=== PATIENT | female | born 1970 | race Two or more races ===

== ENCOUNTER 2018-09-18 17:26 | Inpatient (IN) | payer MEDICAID, OTHER ==
[~2018-09-18] VITALS: Ht 157.5 cm; Wt 50.9 kg
[2018-09-18] MEDS ORDERED: SODIUM CHLORIDE 0.9% 500 ML IV ONE (17:53)
[2018-09-18 19:07] LABS: Basophils # (auto) 0 uL; Basophils % (auto) 0.3 % (0.0-2.0); Eosinophils # (auto) 0 uL; Hematocrit 24.7 % (36.0-46.0); Hemoglobin 7.7 g/dL (12.2-16.2); Lymphocytes # (auto) 0.6 uL; Lymphocytes % (auto) 7.5 % (10.0-50.0); Mean Corpuscular Hemoglobin 23.8 pg (28.0-32.0); Mean Corpuscular Hgb Conc. 31.4 g/dL (32.0-36.0); Monocytes # (auto) 0.3 uL; Monocytes % (auto) 3.3 % (0.0-12.0); Neutrophils # (auto) 7.1 uL; Neutrophils % (auto) 88.9 % (37.0-80.0); Platelet Count (auto) 253 10^3/uL (140-450); Red Blood Cells 3.25 10^6/uL (4.0-5.20); Red Cell Distribution Width 18.1 % (11.8-14.3)
[2018-09-18 19:26] LABS: Albumin 2.8 g/dL (3.4-5.0); Magnesium 1.8 mg/dL (1.6-2.6); Potassium 3.7 mmol/L (3.5-5.1)
[2018-09-18 19:31] LABS: BUN/Creatinine Ratio 25.5; Bilirubin, Total 0.3 mg/dL (0.2-1.0); Total Protein 6.3 g/dL (6.4-8.2)
[2018-09-19] VITALS (10 sets, daily range): BP systolic 91–115; BP diastolic 59–74
[2018-09-19] MEDS ORDERED: ONDANSETRON HCL 4 MG/2 ML VIAL IV ONE (01:15)
[2018-09-19] MEDS ORDERED: MORPHINE SULFATE 4 MG/ML SYR/VIAL IV ONE (01:15)
[2018-09-19] MEDS ORDERED: ONDANSETRON HCL 4 MG/2 ML VIAL IV PRN (01:45)
[2018-09-19] MEDS ORDERED: HYDROcodone-ACET 5/325MG TAB PO PRN (01:45)
[2018-09-19] MEDS ORDERED: ACETAMINOPHEN 500 MG TAB PO PRN (01:45)
[2018-09-19] MEDS: SODIUM CHLORIDE 0.9% 1,000 ML IV SCH ×3 (01:52→21:45)
[2018-09-19 07:43] LABS: Basophils # (auto) 0.1 uL; Lymphocytes # (auto) 1.8 uL; Monocytes # (auto) 0.4 uL; Nucleated Red Blood Cells % 0.1 %; Red Blood Cells 2.97 10^6/uL (4.0-5.20)
[2018-09-19 07:44] LABS: Eosinophils # (auto) 0.1 uL; Hematocrit 22.5 % (36.0-46.0); Hemoglobin 7.1 g/dL (12.2-16.2); Mean Corpuscular Hemoglobin 23.9 pg (28.0-32.0); Mean Corpuscular Hgb Conc. 31.5 g/dL (32.0-36.0); Mean Corpuscular Volume 75.9 fL (80.0-100.0); Monocytes % (auto) 7.3 % (0.0-12.0); Neutrophils # (auto) 3.1 uL; Neutrophils % (auto) 57.7 % (37.0-80.0); Platelet Count (auto) 218 10^3/uL (140-450); Red Cell Distribution Width 17.5 % (11.8-14.3); White Blood Cell 5.4 10^3/uL (4.4-10.8)
[2018-09-19 08:01] LABS: Calcium 7.4 mg/dL (8.5-10.1); Potassium 3.4 mmol/L (3.5-5.1)
[2018-09-19] MEDS ORDERED: cefTRIAXone 1GM/50ML D5W 50 ML IV ONE (11:15)
[2018-09-19 11:31] LABS: Urine Bacteria MANY /hpf (None Seen); Urine Blood Negative /uL (Negative); Urine Mucus MODERATE (None Seen); Urine Specific Gravity 1.025 (1.001-1.035); Urine WBC 63 /hpf (0 - 5)
[2018-09-19 15:51] LABS: INR 1.09 (0.9-1.15); Prothrombin Time 11.6 sec (9.27-12.13)
[2018-09-20] MEDS: SODIUM CHLORIDE 0.9% 1,000 ML IV SCH ×2 (01:52→22:35)
[2018-09-20 04:50] VITALS: BP 109/67
[2018-09-20 06:14] LABS: Basophils # (auto) 0 uL; Eosinophils # (auto) 0 uL; Hematocrit 27.7 % (36.0-46.0); Monocytes # (auto) 0.4 uL; Red Blood Cells 3.54 10^6/uL (4.0-5.20); Red Cell Distribution Width 18.5 % (11.8-14.3); White Blood Cell 5.6 10^3/uL (4.4-10.8)
[2018-09-20 06:17] LABS: Basophils % (auto) 0.6 % (0.0-2.0); Eosinophils % (auto) 0.7 % (0.0-7.0); Lymphocytes % (auto) 18.1 % (10.0-50.0); Mean Corpuscular Hgb Conc. 32.6 g/dL (32.0-36.0); Mean Corpuscular Volume 78.3 fL (80.0-100.0); Monocytes % (auto) 7.3 % (0.0-12.0); Neutrophils # (auto) 4.1 uL; Neutrophils % (auto) 73.3 % (37.0-80.0); Nucleated Red Blood Cells % 0.1 %
[2018-09-20 06:19] LABS: Mean Corpuscular Hemoglobin 25.6 pg (28.0-32.0); Platelet Count (auto) 191 10^3/uL (140-450)
[2018-09-20 06:30] LABS: Calcium 7.5 mg/dL (8.5-10.1); Potassium 3.4 mmol/L (3.5-5.1)
[2018-09-20 06:33] LABS: Albumin 2.6 g/dL (3.4-5.0); BUN/Creatinine Ratio 14.3
[2018-09-20 06:36] LABS: Bilirubin, Total 0.4 mg/dL (0.2-1.0); Total Protein 6.1 g/dL (6.4-8.2)
[2018-09-20 09:00] VITALS: BP 110/70
[2018-09-20] MEDS: cefTRIAXone 1GM/50ML D5W 50 ML IV SCH (09:11)
[2018-09-20] MEDS ORDERED: ADENOSINE 38 MG in GIVE UN-DILUTED 0 ML IV STA (09:48)
[2018-09-20 09:53] VITALS: BP 107/65
[2018-09-20] MEDS ORDERED: POTASSIUM CHL 20MEQ/100ML 100 ML IV ONE (12:15)
[2018-09-20 13:00] VITALS: BP 114/70
[2018-09-20 17:00] VITALS: BP 109/72
[2018-09-20 21:58] VITALS: BP 115/72
[2018-09-21 04:58] VITALS: BP 107/55
[2018-09-21 05:16] LABS: Basophils # (auto) 0 uL; Eosinophils # (auto) 0.1 uL; Lymphocytes # (auto) 1.1 uL; Monocytes # (auto) 0.5 uL; White Blood Cell 4.5 10^3/uL (4.4-10.8)
[2018-09-21 05:20] LABS: Eosinophils % (auto) 1.9 % (0.0-7.0); Hematocrit 26.3 % (36.0-46.0); Lymphocytes % (auto) 25.4 % (10.0-50.0); Mean Corpuscular Hemoglobin 26.5 pg (28.0-32.0); Mean Corpuscular Hgb Conc. 34.1 g/dL (32.0-36.0); Mean Corpuscular Volume 77.5 fL (80.0-100.0); Monocytes % (auto) 11.2 % (0.0-12.0); Neutrophils # (auto) 2.7 uL; Neutrophils % (auto) 60.5 % (37.0-80.0); Platelet Count (auto) 180 10^3/uL (140-450); Red Blood Cells 3.39 10^6/uL (4.0-5.20); Red Cell Distribution Width 18.5 % (11.8-14.3)
[2018-09-21 05:42] LABS: Albumin 2.4 g/dL (3.4-5.0); Calcium 7.4 mg/dL (8.5-10.1)
[2018-09-21 05:46] LABS: BUN/Creatinine Ratio 8.6; Bilirubin, Total 0.4 mg/dL (0.2-1.0); Total Protein 5.6 g/dL (6.4-8.2)
[2018-09-21 05:55] LABS: Potassium 2.9 mmol/L (3.5-5.1)
[2018-09-21] MEDS: SODIUM CHLORIDE 0.9% 1,000 ML IV SCH (06:28)
[2018-09-21] MEDS ORDERED: POTASSIUM CHL 20MEQ/100ML 100 ML IV ONE ×2 (08:45→10:45)
[2018-09-21 09:00] VITALS: BP 104/69
[2018-09-21] MEDS: cefTRIAXone 1GM/50ML D5W 50 ML IV SCH (09:00)
[2018-09-21] MEDS ORDERED: PANTOPRAZOLE 40 MG TAB PO ONE (10:30)
[2018-09-21] MEDS: SOD CHL 0.9%/ KCL 20MEQ 1,000 ML IV SCH ×2 (10:30→23:50)
[2018-09-21] MEDS ORDERED: GOLYTELY 4L KIT PO ONE (12:45)
[2018-09-21 13:00] VITALS: BP 107/69
[2018-09-21 16:56] VITALS: BP 115/75
[2018-09-21 21:37] VITALS: BP 116/75
[2018-09-22 04:44] VITALS: BP 102/66
[2018-09-22] MEDS ORDERED: GOLYTELY 4L KIT PO ONE (06:00)
[2018-09-22 06:07] LABS: Hemoglobin 8.9 g/dL (12.2-16.2)
[2018-09-22 06:15] LABS: Hematocrit 27.5 % (36.0-46.0)
[2018-09-22 06:43] LABS: Potassium 3.1 mmol/L (3.5-5.1)
[2018-09-22 06:51] LABS: BUN/Creatinine Ratio 6.3; Calcium 7.9 mg/dL (8.5-10.1)
[2018-09-22 08:00] VITALS: BP 102/56
[2018-09-22] MEDS ORDERED: SODIUM CHLORIDE LOCK 10 ML ONE (08:25)
[2018-09-22] MEDS ORDERED: diphenhdrAMINE 50mg/ml (500mg/10ml VIAL) ONE (08:25)
[2018-09-22] MEDS ORDERED: LIDOCAINE VISCOUS 2% 15ML UD ONE (08:25)
[2018-09-22 08:56] VITALS: BP 102/56
[2018-09-22] MEDS: cefTRIAXone 1GM/50ML D5W 50 ML IV SCH (09:27)
[2018-09-22] MEDS ORDERED: PANTOPRAZOLE 40 MG TAB PO SCH (10:00)
[2018-09-22] MEDS: MIDAZOLAM HCL 5 MG/ML-1ML VIAL ONE ×2 (11:10→11:23)
[2018-09-22] MEDS: fentaNYL CITRATE 100 MCG/2 ML VL ONE ×2 (11:10→11:23)
[2018-09-22] MEDS: SOD CHL 0.9%/ KCL 20MEQ 1,000 ML IV SCH (13:03)
[2018-09-22] MEDS ORDERED: FER325T PO (13:06)
[2018-09-22] MEDS ORDERED: POTASSIUM CHL 20 Meq TABLET PO ONE (13:30)
[2018-09-22 14:40] VITALS: BP 102/56
== END 2018-09-22 16:25 | disposition home or self-care (01) | DRG 663 ==
LOC: EDBD 17:26 → ER 17:26 → TELE 17:27 → TELE-WESTW 09-19 03:10
PROVIDERS: ADMIT Nurse Practitioner Family; ATTEND Internal Medicine
PROC: 30233N1 Transfusion of Nonautologous Red Blood Cells into Peripheral Vein, Percutaneous Approach (ICD-10-PCS; 2018-09-19)
PROC: 0DJ08ZZ Inspection of Upper Intestinal Tract, Via Natural or Artificial Opening Endoscopic (ICD-10-PCS; principal; 2018-09-22 11:05)
PROC: 0DJD8ZZ Inspection of Lower Intestinal Tract, Via Natural or Artificial Opening Endoscopic (ICD-10-PCS; 2018-09-22 11:05)
DX: D50.9 Iron deficiency anemia, unspecified (principal); K80.00 Calculus of gallbladder with acute cholecystitis without obstruction; E44.1 Mild protein-calorie malnutrition; E83.51 Hypocalcemia; E87.6 Hypokalemia; F41.9 Anxiety disorder, unspecified; K44.9 Diaphragmatic hernia without obstruction or gangrene; K59.00 Constipation, unspecified; K64.8 Other hemorrhoids; Z68.20 Body mass index [BMI] 20.0-20.9, adult
CPT/HCPCS: 36415; 71045; 74176; 74181; 76705; 78226; 78452; 80048; 80053; 81001; 83735; 84484; 84702; 85014; 85018; 85025; 85610; 86850; 86900; 86901; 86920; 87086; 93005; 93017; 93306; 94761; 96361; 96374; 96375; A6257; G0378; J0153; J0696; J1200; J2250; J2405; J3480

== ENCOUNTER 2019-05-24 10:07 | Emergency (ER) | payer MEDICAID ==
[~2019-05-24] VITALS: Ht 160 cm; Wt 52.2 kg
[~2019-05-24 10:07] MED LIST: FER325T PO
[2019-05-24] MEDS ORDERED: SODIUM CHLORIDE 0.9% 1,000 ML IV ONE ×3 (10:45→12:18)
[2019-05-24] MEDS ORDERED: ONDANSETRON HCL 4 MG/2 ML VIAL IV ONE (10:45)
[2019-05-24] MEDS ORDERED: MORPHINE SULFATE 4 MG/ML SYR/VIAL IV ONE (10:45)
[2019-05-24 11:01] LABS: Basophils # (auto) 0.1 uL; Eosinophils # (auto) 0.1 uL; Hemoglobin 9.9 g/dL (12.2-16.2); Lymphocytes # (auto) 1.3 uL; Mean Corpuscular Volume 82.9 fL (80.0-100.0); Monocytes # (auto) 0.5 uL; Neutrophils # (auto) 2.4 uL; Nucleated Red Blood Cells % 0.1 %
[2019-05-24 11:03] LABS: Basophils % (auto) 1.2 % (0.0-2.0); Eosinophils % (auto) 1.8 % (0.0-7.0); Hematocrit 30.8 % (36.0-46.0); Lymphocytes % (auto) 30.4 % (10.0-50.0); Mean Corpuscular Hemoglobin 26.7 pg (28.0-32.0); Mean Corpuscular Hgb Conc. 32.2 g/dL (32.0-36.0); Monocytes % (auto) 10.5 % (0.0-12.0); Neutrophils % (auto) 56.1 % (37.0-80.0); Platelet Count (auto) 214 10^3/uL (140-450); Red Blood Cells 3.72 10^6/uL (4.0-5.20); Red Cell Distribution Width 15.7 % (11.8-14.3); White Blood Cell 4.3 10^3/uL (4.4-10.8)
[2019-05-24 11:08] LABS: Potassium 3.4 mmol/L (3.5-5.1)
[2019-05-24 11:16] LABS: Albumin 3.2 g/dL (3.4-5.0); BUN/Creatinine Ratio 20.4; Bilirubin, Total 0.3 mg/dL (0.2-1.0); Calcium 8.3 mg/dL (8.5-10.1); Total Protein 7.3 g/dL (6.4-8.2)
[2019-05-24 13:07] VITALS: BP 103/66
[2019-05-24] MEDS ORDERED: POTASSIUM EFFERVESENT TAB 25 MEQ PO ONE (13:30)
[2019-05-24 14:46] LABS: Urine Bacteria FEW /hpf (None Seen); Urine Blood Negative /uL (Negative); Urine Mucus FEW (None Seen); Urine Specific Gravity 1.012 (1.001-1.035); Urine WBC 2 /hpf (0 - 5)
== END 2019-05-24 15:03 | disposition home or self-care (01) ==
LOC: ER 10:11
DX: N39.0 Urinary tract infection, site not specified (principal); K59.00 Constipation, unspecified; R11.0 Nausea; Z79.899 Other long term (current) drug therapy; Z90.49 Acquired absence of other specified parts of digestive tract
CPT/HCPCS: 36415; 71045; 74176; 80053; 81001; 84702; 85025; 96374; 96375; 99284; J2270; J2405; J7030

== ENCOUNTER 2025-02-09 22:43 | Inpatient (IN) | payer MEDICAID, OTHER ==
[~2025-02-09] VITALS: Ht 157.5 cm; Wt 66.5 kg
[~2025-02-09 22:43] MED LIST changes: +DEX4T PO; +FURO20TA4 PO; +GABA-1250 PO; +MIRA25TA4 PO
--- NOTE | 2025-02-09 22:52 | ED.PDOC ---
HPI Comments 54-year-old female came to ER via EMS for palpitations. Patient as of 9:45 p.m. started having palpitations, dizziness, blurring of vision, diaphoresis and headaches. States she has been having episodes of palpitations before but usually resolves spontaneously after 1-2 minutes. Palpitations has persisted and progressed prompting check up. Denies any acute chest pains. Patients EKG on scene showed Afib in RVR. Patient never diagnosed of AFib Chief Complaint: Palpitations Time Seen by MD: 23:59 Reviewed Notes: Nurses Notes Allergies: Coded Allergies: No Known Drug Allergy (Verified Allergy, Unknown, 09/18/18) Home Meds Active Scripts Amiodarone HCl (Amiodarone HCl) 200 Mg Tab, 200 MG PO Q12HR for 60 Days, #120 TAB Prov:JESICA Moe NIMCO RESIDENT 02/12/25 Atorvastatin Calcium (ATORVASTATIN CALCIUM) 20 Mg Tab, 20 MG PO HS for 60 Days, #60 TAB Prov:NIMCO HARRISON RESIDENT 02/12/25 Gabapentin (Gabapentin) 300 Mg Cap, 600 MG PO BID for 60 Days, #60 CAP Prov:NIMCO HARRISON RESIDENT 02/12/25 Levothyroxine Sodium (Levothyroxine Sodium) 50 Mcg Tab, 50 MCG PO QAM@0600 for 60 Days, #60 TAB Prov:JESICA Moe NIMCO RESIDENT 02/12/25 Reported Medications Furosemide (Furosemide) 20 Mg Tab, 0.5 TAB PO DAILY for 30 Days, #15 02/10/25 Ciprofloxacin Hcl (Ciprofloxacin Hcl) 500 Mg Tab, 1 TAB PO BID 02/10/25 Metoclopramide HCl (Metoclopramide Hydrochlor) 10 Mg Tab, 1 TAB PO QID 02/10/25 Nitrofurantoin Monohydrate Mac (Macrobid) 100 Mg Cap, 100 MG PO Q12HR, CAP 02/10/25 Clotrimazole (Topical) (Clotrimazole Anti-Fungal) 1 % Cre, 1 TOP DAILY 02/10/25 Dexamethasone (Decadron) 4 Mg Tb, PO UD for 30 Days, #40 02/10/25 Esomeprazole Magnesium (Esomeprazole Magnesium Dr) 40 Mg Cap, 1 CAP PO DAILY 02/10/25 Mirtazapine (Remeron Soltab) 15 Mg Tab, 25 MG PO DAILY, TAB 02/10/25 Mirabegron (Mirabegron ER) 25 Mg Tab, 1 TAB PO DAILY for 30 Days, #30 02/10/25 Multiple Vitamins W/ Minerals (Theragran-M Premier 50 Pl) 50 Plus Tab, 50 PLUS PO DAILY, TAB 02/10/25 Ascorbic Acid (Vitamin C 500 mg) 1 Tab Tab, 1 TAB PO DAILY, TAB 02/10/25 Aspirin (Aspirin Low Dose) 81 Mg Tab, 1 TAB PO DAILY 02/10/25 Midodrine Hcl (Midodrine Hcl) 10 Mg Tab, 15 MG PO TID, TAB 02/10/25 Acetaminophen (Tylenol) 325 Mg Cap, 325 MG PO Q6HP PRN for PAIN SCALE 1 THRU 6, CAP 02/10/25 Gabapentin (Gabapentin) 300 Mg Cap, 2 CAP PO TID for 30 Days, #180 02/10/25 Loperamide HCl (Loperamide Hydrochloride) 2 Mg Cap, 2 PO BID 02/10/25 Information Source: Patient Mode of Arrival: EMS Review of Systems REVIEW OF SYSTEMS: No fever, no chills, or fatigue HEENT: No sore throat, no earache, no congestion, no neck pain. Cardiac: No chest pain. (+) palpitations. Lungs: No shortness of breath, no cough. GI: No nausea, no vomiting, no diarrhea, no constipation, no abdominal pain : No dysuria, frequency, or urgency. No hematuria. Musculoskeletal: No joint pain , no joint swelling, no extremity edema. Skin: No rash, no itching. Neuro: No headache, (+) dizziness, no weakness Vital Signs Vital Signs Date Time Temp Pulse Resp B/P (MAP) Pulse Ox O2 Delivery O2 Flow Rate FiO2 02/10/25 01:54 96/57 02/10/25 01:53 80 02/10/25 01:51 17 100 Nasal Cannula* 2 28 02/09/25 23:05 98.7 98.7 Physical Exam General: Awake, alert and oriented. No acute distress. Skin: Skin in warm, dry and intact. Appropriate color for ethnicity. Nailbeds pink with no cyanosis. HEENT: The head is normocephalic and atraumatic. Conjunctivae are clear without exudates or hemorrhage. Sclera is non-icteric. EOM are intact. No signs of nystagmus. Eyelids are normal in appearance without swelling or lesions. Oral mucosa is pink and moist Neck: The neck is supple with normal range of motion. No JVD. Cardiac: Heart rate and rhythm are normal. No murmurs, gallops, or rubs are auscultated. Respiratory: No signs of respiratory distress. Lung sounds are clear in all lobes bilaterally without rales, ronchi, or wheezes. Abdominal: Abdomen is soft, non-tender without distention. Bowel sounds are present and normoactive in all four quadrants. Extremities: Upper and lower extremities are atraumatic in appearance without deformity or edema. Neurological: The patient is awake, alert and oriented to person, place, and time with normal speech. Speech is clear. There is no facial asymmetry. Psychiatric: Appropriate mood and affect. Good judgement and insight. No visual or auditory hallucinations. 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 Was a procedure done?: No CP Differential Dx Differential Diagnosis: A-fib, Angina, Anxiety / Panic Attack, Electrolyte Disorder, Hyperventilation, Sinus Tachycardia Differential Diagnosis: Angina, Chest Wall Pain, Costochondritis, Esophageal reflux/spasm, Gastritis, Myocardial Infarction X-Ray, Labs, Meds, VS Vital Signs Date Time Temp Pulse Resp B/P (MAP) Pulse Ox O2 Delivery O2 Flow Rate FiO2 02/10/25 01:54 96/57 02/10/25 01:53 80 02/10/25 01:51 88 17 100 Nasal Cannula* 2 28 02/10/25 01:50 81 19 95/67 (76) 100 02/10/25 01:35 73 16 93/65 (74) 100 02/10/25 01:20 88 16 86/57 (67) 100 02/10/25 01:05 92 20 86/59 (68) 100 02/10/25 00:54 83/57 02/10/25 00:50 88 16 83/58 (66) 100 02/10/25 00:35 88 18 86/58 (67) 100 02/10/25 00:20 135 19 75/45 (55) 99 02/10/25 00:05 160 19 84/60 (68) 100 02/09/25 23:50 140 16 81/57 (65) 100 02/09/25 23:48 149 02/09/25 23:35 119 19 65/45 (52) 100 02/09/25 23:20 171 14 79/50 (60) 100 02/09/25 23:05 98.7 169 22 82/54 (63) 100 98.7 02/09/25 22:52 161 02/09/25 22:46 98.2 170 20 95/60 (72) 98 98.2 02/09/25 22:44 161 Lab Test 02/10/25 01:46 02/09/25 23:51 02/09/25 23:15 Range/Units Troponin I High Sensitivity 59 *H 11 7 </=34 ng/L White Blood Count 5.0 4.4-10.8 10^3/uL Red Blood Count 4.17 4.0-5.20 10^6/uL Hemoglobin 13.3 12.2-16.2 g/dL Hematocrit 40.4 36.0-46.0 % Mean Corpuscular Volume 96.8 80.0-100.0 fL Mean Corpuscular Hemoglobin 31.9 28.0-32.0 pg Mean Corpuscular Hemoglobin Concent 32.9 32.0-36.0 g/dL Red Cell Distribution Width 18.8 H 11.8-14.3 % Platelet Count 207 140-450 10^3/uL Mean Platelet Volume 8.7 6.9-10.8 fL Neutrophils (%) (Auto) 28.9 L 37.0-80.0 % Lymphocytes (%) (Auto) 39.9 10.0-50.0 % Monocytes (%) (Auto) 19.4 H 0.0-12.0 % Eosinophils (%) (Auto) 10.4 H 0.0-7.0 % Basophils (%) (Auto) 1.4 0.0-2.0 % Neutrophils # (Auto) 1.5 L 1.6-8.6 10 ^3/uL Lymphocytes # (Auto) 2.0 0.4-5.4 10 ^3/uL Monocytes # (Auto) 1.0 0-1.3 10 ^3/uL Eosinophils # (Auto) 0.5 0-0.8 10 ^3/uL Basophils # (Auto) 0.1 0-0.2 10 ^3/uL Nucleated Red Blood Cells 0.1 % Sodium Level 145 136-145 mmol/L Potassium Level 3.6 3.5-5.1 mmol/L Chloride Level 110 H 98-107 mmol/L Carbon Dioxide Level 29 20-31 mmol/L Anion Gap 6 5-15 Blood Urea Nitrogen 17 9-23 mg/dL Creatinine 0.60 0.550-1.02 mg/dL Glomerular Filtration Rate Calc 107 >90 mL/min BUN/Creatinine Ratio 28.3 H 10.0-20.0 Serum Glucose 114 H 74-106 mg/dL Calcium Level 8.9 8.7-10.4 mg/dL Total Bilirubin 0.3 0.2-1.0 mg/dL Aspartate Amino Transferase (AST) 15 13-40 U/L Alanine Aminotransferase (ALT) 37 7-40 U/L Alkaline Phosphatase 105 46-116 U/L B-Type Natriuretic Peptide 66.46 0-100 pg/mL Total Protein 5.9 5.7-8.2 g/dL Albumin 3.8 3.2-4.8 g/dL Thyroid Stimulating Hormone (TSH) 3.02 0.55-4.78 uIU/mL Time of 1ST Reevaluation: 22:50 Reevaluation 1ST: Unchanged Patient Education/Counseling: Diagnosis, Treatment Family Education/Counseling: No Family Present Departure 1 Departure Time of Disposition: 00:32 Impression: Primary Impression: New onset a-fib Disposition: ADMITTED INPATIENT Condition: Stable e-Prescriptions Amiodarone HCl (Amiodarone HCl) 200 Mg Tab 200 MG PO Q12HR for 60 Days, #120 TAB Prov: NIMCO HARRISON RESIDENT 02/12/25 Atorvastatin Calcium (ATORVASTATIN CALCIUM) 20 Mg Tab 20 MG PO HS for 60 Days, #60 TAB Prov: NIMCO HARRISON RESIDENT 02/12/25 Gabapentin (Gabapentin) 300 Mg Cap 600 MG PO BID for 60 Days, #60 CAP Prov: NIMCO HARRISON RESIDENT 02/12/25 Levothyroxine Sodium (Levothyroxine Sodium) 50 Mcg Tab 50 MCG PO QAM@0600 for 60 Days, #60 TAB Prov: NIMCO HARRISON RESIDENT 02/12/25 Comments Patient admitted for further evaluation, monitoring and treatment Critical Care Note Critical Care Time?: Yes (35 min-critical care time only) Critical care comment: AFib, hypotension Stability Stability form required: No Heart Score Heart Score: Heart Score Response (Comments) Value History Moderate Suspicious 1 EKG Repolarization Disturb 1 Age 45-64 1 Risk Factors >3 or Hx ASHD 2 Troponin Normal limit 0 Total 5 I personally scribed for MARIA R NICHOLSON MD ([email or web address]) on 02/09/25 at 22:51. Electronically submitted by Checo Hoyt (appbackr). I personally scribed for MARIA R NICHOLSON MD ([email or web address]) on 02/10/25 at 00:01. Electronically submitted by Checo Hoyt (appbackr). MARIA R NICHOLSON MD Feb 09, 2025 22:51
[2025-02-09] MEDS: dilTIAZem 25 MG/5 ML VIAL IV ONE ×2 (23:23→23:30)
[2025-02-09] MEDS: SODIUM CHLORIDE 0.9% 1,000 ML IV ONE (23:27)
[2025-02-09 23:30] LABS: Basophils # (auto) 0.1 10 ^3/uL (0-0.2); Basophils % (auto) 1.4 % (0.0-2.0); Eosinophils # (auto) 0.5 10 ^3/uL (0-0.8); Eosinophils % (auto) 10.4 % (0.0-7.0); Hematocrit 40.4 % (36.0-46.0); Hemoglobin 13.3 g/dL (12.2-16.2); Lymphocytes % (auto) 39.9 % (10.0-50.0); Mean Corpuscular Hemoglobin 31.9 pg (28.0-32.0); Mean Corpuscular Hgb Conc. 32.9 g/dL (32.0-36.0); Mean Corpuscular Volume 96.8 fL (80.0-100.0); Neutrophils # (auto) 1.5 10 ^3/uL (1.6-8.6); Neutrophils % (auto) 28.9 % (37.0-80.0); Nucleated Red Blood Cells % 0.1 %; Platelet Count (auto) 207 10^3/uL (140-450); Red Blood Cells 4.17 10^6/uL (4.0-5.20); Red Cell Distribution Width 18.8 % (11.8-14.3)
[2025-02-09] MEDS: NOREPINEPHRINE 8 MG/250ML KIT 250 ML IV ONE (23:37)
[2025-02-09 23:43] LABS: Monocytes % (auto) 19.4 % (0.0-12.0)
[2025-02-09 23:50] LABS: Alanine Aminotransferase 37 U/L (7-40); Albumin 3.8 g/dL (3.2-4.8); Alkaline Phosphatase 105 U/L (46-116); Anion Gap 6 (5-15); Aspartate Aminotransferase 15 U/L (13-40); BUN/Creatinine Ratio 28.3 (10.0-20.0); Blood Urea Nitrogen 17 mg/dL (9-23); Calcium 8.9 mg/dL (8.7-10.4); Carbon Dioxide 29 mmol/L (20-31); Potassium 3.6 mmol/L (3.5-5.1); Sodium 145 mmol/L (136-145); Total Protein 5.9 g/dL (5.7-8.2)
[2025-02-09 23:51] LABS: Bilirubin, Total 0.3 mg/dL (0.2-1.0); Chloride 110 mmol/L (98-107); Glucose 114 mg/dL (74-106)
--- NOTE | 2025-02-09 23:53 | DVH ---
CHEST RADIOGRAPH Indication: cp Technique: Single frontal view of the chest was obtained COMPARISON: None FINDINGS: Lines and Tubes: None Lungs: Evidence of mild pulmonary vascular congestion. No pulmonary infiltrates Pleura: No effusion. No pneumothorax. Cardiomediastinal contours: Unremarkable Bones: Unremarkable IMPRESSION: Mild pulmonary vascular congestion.
[2025-02-10] MEDS: AMIODARONE BOLUS KIT 100 ML IV ONE (00:05)
[2025-02-10] MEDS: NOREPINEPHRINE 8 MG/250ML KIT 250 ML IV SCH (00:54)
[2025-02-10 01:51] VITALS: PULSE 88; RESP 17; O2SAT 100
[2025-02-10] MEDS ORDERED: NITROGLYCERIN 0.4 MG SL TAB SL PRN (02:15)
[2025-02-10] MEDS ORDERED: HYDROcodone-ACET 5/325MG TAB PO PRN (02:15)
[2025-02-10] MEDS ORDERED: ACETAMINOPHEN 325 MG TAB PO PRN (02:15)
[2025-02-10] MEDS ORDERED: DOCUSATE SOD 100 MG CAP PO PRN (02:15)
[2025-02-10] MEDS ORDERED: ONDANSETRON HCL 4 MG/2 ML VIAL IV PRN (02:15)
[2025-02-10] MEDS ORDERED: MORPHINE SULFATE INJ 2 MG/ml SYRG IV PRN (02:15)
[2025-02-10] MEDS: ASPirin 81 mg TAB PO ONE (02:29)
--- NOTE | 2025-02-10 02:30 | DVHHP2 ---
History of Present Illness Reason for Visit: New onset atrial fibrillation History of Present Illness The patient is a 54-year-old female with past medical history of hypotension, thyroid disease, amyloidosis, and neuropathy who presented to [facility] ED with complaint of palpitations. Patient reports symptoms prog ressively get worse with dizziness, blurring of vision, diaphoresis, headaches, getting worse that prompted this visit. Daughter/patient reports she has been having episode of a palpitations prior but usually resolves after 1-2 minutes. Patient was seen and evaluated in the ED, laboratory data shows WBC 5.0, platelets 207, sodium 145, potassium 3.6, BUN 17, creatinine 0.60, GFR 107, glucose 114, troponin 11, BNP 66.46, TSH 3.02, blood pressure 86/59, heart rate 171 trending down to 88, temperature 98.7 F, O2 saturation 97% on oxygen, EKG shows AFib with RVR. Chest x-ray revealing mild pulmonary vascular congestion. Patient was given IV Cardizem, IV norepinephrine, please please see medication orders section in the computer. On my assessment, patient denied chest pain, no headache, no dizziness, no diaphoresis, currently on oxygen, no nausea, no vomiting, no fever, no chills. Patient was admitted for further evaluation and medical management. Past Medical History Hypotension, Thyroid, Amyloidosis, neuropathy Past Surgical History Denies all surgeries Family History Reviewed, noncontributory to the management of this case. Past Social History The patient lives at home, denies smoking, alcohol or illicit drugs abuse. Review of Systems Constitutional: Yes: Weakness; No: Fever, Chills, Sweats, Malaise, Other Eyes: No: Pain, Vision change, Conjunctivae inflammation, Eyelid inflammation, Other, Redness ENT: No: Ear pain, Ear discharge, Nose pain, Nose discharge, Nose congestion, Mouth pain, Mouth swelling, Throat pain, Throat swelling, Other Respiratory: No: Cough, Dry, Shortness of breath, SOB with excertion, Wheezing, Hemoptysis, Pleuritic Pain, Sputum, Wheezing, Other Cardiovascular: Palpitations; No: Chest Pain, Orthopnea, Paroxysmal Noc. Dyspnea, Edema, Lt Headedness, Other Gastrointestinal: No: Nausea, Vomiting, Abdominal Pain, Diarrhea, Constipation, Melena, Hematochezia, Other Genitourinary: No Dysuria, No Frequency, No Incontinence, No Hematuria, No Retention, No Other Musculoskeletal: No: other, neck pain, shoulder pain, arm pain, back pain, hand pain, leg pain, foot pain Skin: No: Rash, Lesions, Jaundice, Bruising, Other Neurological: No: Weakness, Numbness, Incoordination, Change in speech, Confusion, Seizures, Other Allergies: Coded Allergies: NO KNOWN ALLERGIES (Unverified , 02/09/25) Medications Current Medications Medications Dose Ordered Sig/Sid Route Start Time Stop Time Status Last Admin Dose Admin Norepinephrine Bitartrate 250 ml @ 3.75 mls/hr Q24H IV 02/10/25 00:45 02/10/25 00:54 3.75 MLS/HR Exam Vital Signs Vital Signs Date Time Temp Pulse Resp B/P (MAP) Pulse Ox O2 Delivery O2 Flow Rate FiO2 02/10/25 02:05 83 16 98/64 (75) 99 02/10/25 01:51 Nasal Cannula* 2 28 02/09/25 23:05 98.7 98.7 General Appearance: Alert, Oriented X3, Cooperative, No acute distress HEENT: Atraumatic, PERRLA, EOMI, Mucous membr. moist/pink Respiratory: Clear to auscultation, Normal air movement Cardiovascular: Normal S1, Normal S2, No murmurs, Other (AFib with RVR) Abdominal: Normal bowel sounds, Soft, No tenderness, No hepatospenomegaly, No masses Extremities: No clubbing, No cyanosis, No edema, Normal pulses, No t enderness/swelling Skin: No rashes, No breakdown, No significant lesion Neuro: Normal speech, Normal tone, Sensation intact, Cranial nerves 3-12 NL, Reflexes 2+, Other (Generalized weakness) Psych/Mental Status: Mental status NL, Mood NL Labs/Xrays Labs Test 02/10/25 01:46 02/09/25 23:15 Range/Units White Blood Count 5.0 4.4-10.8 10^3/uL Red Blood Count 4.17 4.0-5.20 10^6/uL Hemoglobin 13.3 12.2-16.2 g/dL Hematocrit 40.4 36.0-46.0 % Mean Corpuscular Volume 96.8 80.0-100.0 fL Mean Corpuscular Hemoglobin 31.9 28.0-32.0 pg Mean Corpuscular Hemoglobin Concent 32.9 32.0-36.0 g/dL Red Cell Distribution Width 18.8 H 11.8-14.3 % Platelet Count 207 140-450 10^3/uL Mean Platelet Volume 8.7 6.9-10.8 fL Neutrophils (%) (Auto) 28.9 L 37.0-80.0 % Lymphocytes (%) (Auto) 39.9 10.0-50.0 % Monocytes (%) (Auto) 19.4 H 0.0-12.0 % Eosinophils (%) (Auto) 10.4 H 0.0-7.0 % Basophils (%) (Auto) 1.4 0.0-2.0 % Neutrophils # (Auto) 1.5 L 1.6-8.6 10 ^3/uL Lymphocytes # (Auto) 2.0 0.4-5.4 10 ^3/uL Monocytes # (Auto) 1.0 0-1.3 10 ^3/uL Eosinophils # (Auto) 0.5 0-0.8 10 ^3/uL Basophils # (Auto) 0.1 0-0.2 10 ^3/uL Nucleated Red Blood Cells 0.1 % Sodium Level 145 136-145 mmol/L Potassium Level 3.6 3.5-5.1 mmol/L Chloride Level 110 H 98-107 mmol/L Carbon Dioxide Level 29 20-31 mmol/L Anion Gap 6 5-15 Blood Urea Nitrogen 17 9-23 mg/dL Creatinine 0.60 0.550-1.02 mg/dL Glomerular Filtration Rate Calc 107 >90 mL/min BUN/Creatinine Ratio 28.3 H 10.0-20.0 Serum Glucose 114 H 74-106 mg/dL Calcium Level 8.9 8.7-10.4 mg/dL Total Bilirubin 0.3 0.2-1.0 mg/dL Aspartate Amino Transferase (AST) 15 13-40 U/L Alanine Aminotransferase (ALT) 37 7-40 U/L Alkaline Phosphatase 105 46-116 U/L B-Type Natriuretic Peptide 66.46 0-100 pg/mL Total Protein 5.9 5.7-8.2 g/dL Albumin 3.8 3.2-4.8 g/dL Thyroid Stimulating Hormone (TSH) 3.02 0.55-4.78 uIU/mL PATIENT: KIM SOLIS ACCT: [id number] UNIT: [id number] : 1970 LOC: ER ROOM / BED: / AGE / SEX: 54 / F ADM STATUS: REG ER SERVICE 2253 ORDERING PHYSICIAN: MARIA R NICHOLSON MD PROCEDURE(s): CXR1 - CHEST XRAY 1 VIEW REASON: cp ORDER NUMBER(s): [id number], ACCESSION NUMBER(s): [id number] CHEST RADIOGRAPH Indication: cp Technique: Single frontal view of the chest was obtained COMPARISON: None FINDINGS: Lines and Tubes: None Lungs: Evidence of mild pulmonary vascular congestion. No pulmonary infiltrates Pleura: No effusion. No pneumothorax. Cardiomediastinal contours: Unremarkable Bones: Unremarkable IMPRESSION: Mild pulmonary vascular congestion. Assessment/Plan Assessment/Plan New onset atrial fibrillation Hypotension Generalized weakness Plan 1. Admit to intensive care unit 2. Breathing treatment 3. Pain control management 4. Management of fluids and electrolytes 5. Consultation for Cardiology 6. Diagnostic tests chest x-ray 7. DVT prophylaxis-on aspirin 8. Repeat labs CBC, CMP in a.m. 9. Continue with current medical management 10. Treatment plan discussed with patient and RN. Patient verbalized understanding. Plan discussed with: Patient, Daughter (At bedside), Other (RN) My Orders Orders - JIMMY RHOADES DNP Procedure Category Date Status Time Complete Blood Count LAB 02/10/25 Verified 04:00 Comprehensive LAB 02/10/25 Verified Metabolic Panel 04:00 Aspirin Tablet PHA 02/10/25 Verified 10:00 Aspirin Tablet PHA 02/10/25 Verified 02:15 Atorvastatin (Lipitor) PHA 02/10/25 Verified 22:00 Levothyroxine Tablet PHA 02/10/25 Verified (Synthroid Tablet) 06:00 * Cardiology Consult CONS 02/10/25 Verified 02:01 Amiodarone Tablet PHA 02/10/25 Verified (Cordarone Tablet) 10:00 Admit ADMIT 02/10/25 Verified 02:01 Allergies LEO 02/10/25 Verified 02:01 Code Status CODE 02/10/25 Verified 02:01 Sodium Chloride Lock PHA 02/10/25 Verified (Saline Lock Ns) 06:00 Oxygen Per Hour RT 02/10/25 Verified 02:01 Hydrocodone-Acet PHA 02/10/25 Verified 5/325mg Tab ([place] 02:15 Ondansetron Hcl PHA 02/10/25 Verified (Zofran) 02:15 Docusate Sodium [facility] 02/10/25 Verified Capsule ([place] 02:15 Complete Blood Count LAB 02/11/25 Verified 04:00 Comprehensive LAB 02/11/25 Verified Metabolic Panel 04:00 Cardiac DIET 02/10/25 Verified Diet-2gna,Lofat,Lochol Breakfast Condition: Serious [facility] 02/10/25 Verified 02:01 Acetaminophen Tablet [facility] 02/10/25 Verified (Tylenol Tablet) 02:15 Bedrest With Bathroom [facility] 02/10/25 Verified Privileg 02:01 Sequential [facility] 02/10/25 Verified Compression Device Nitroglycerin [facility] 02/10/25 Verified Sublingual (Ntrostat 02:15 Morphine Sulfate [facility] 02/10/25 Verified Injection 02:15 Stat Ekg For Chest [facility] 02/10/25 Verified Pain 02:01 Notify Md Of Changes [facility] 02/10/25 Verified From Base 02:01 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
[2025-02-10 05:12] LABS: Basophils # (auto) 0.1 10 ^3/uL (0-0.2); Basophils % (auto) 1.3 % (0.0-2.0); Eosinophils # (auto) 0.5 10 ^3/uL (0-0.8); Eosinophils % (auto) 8.7 % (0.0-7.0); Hematocrit 37.3 % (36.0-46.0); Hemoglobin 12.5 g/dL (12.2-16.2); Lymphocytes # (auto) 2.4 10 ^3/uL (0.4-5.4); Lymphocytes % (auto) 42.7 % (10.0-50.0); Mean Corpuscular Hemoglobin 32.1 pg (28.0-32.0); Mean Corpuscular Hgb Conc. 33.4 g/dL (32.0-36.0); Neutrophils # (auto) 1.7 10 ^3/uL (1.6-8.6); Neutrophils % (auto) 30.3 % (37.0-80.0); Nucleated Red Blood Cells % 0.1 %; Platelet Count (auto) 214 10^3/uL (140-450); Red Blood Cells 3.89 10^6/uL (4.0-5.20); Red Cell Distribution Width 18.4 % (11.8-14.3); White Blood Cell 5.6 10^3/uL (4.4-10.8)
[2025-02-10 05:36] LABS: Albumin 3.4 g/dL (3.2-4.8); Alkaline Phosphatase 97 U/L (46-116); Anion Gap 9 (5-15); Aspartate Aminotransferase 20 U/L (13-40); BUN/Creatinine Ratio 30.8 (10.0-20.0); Blood Urea Nitrogen 16 mg/dL (9-23); Carbon Dioxide 24 mmol/L (20-31); Sodium 143 mmol/L (136-145)
[2025-02-10 05:44] LABS: Alanine Aminotransferase 42 U/L (7-40); Bilirubin, Total 0.3 mg/dL (0.2-1.0); Calcium 8.2 mg/dL (8.7-10.4); Chloride 110 mmol/L (98-107); Glucose 124 mg/dL (74-106); Potassium 3.4 mmol/L (3.5-5.1); Total Protein 5.2 g/dL (5.7-8.2)
[2025-02-10] MEDS: SODIUM CHLOR 0.9% PF (SALINE LOCK) 10ML VIAL/SYR IV SCH (05:53)
[2025-02-10] MEDS: LEVOTHYROXINE SODIUM 50 MCG TAB PO SCH (05:56)
--- NOTE | 2025-02-10 06:26 | ECG ---
[facility] Test Date: 2025-02-09 Test Time: 22:44:46 Pat Name: KIM SOLIS Department: ER Room: [address] [place] [address] Gender: F Snap Shearer: : 1970 Requested By: MARIA R NICHOLSON Order Number: [id number] Reading MD: Ricky Gonzales Measurements Intervals [place] Rate: 161 P: 0 MA: 0 QRS: 84 QRSD: 84 T: -11 QT: 245 QTc: 401 Interpretive Statements Atrial fibrillation with rapid V-rate Repolarization abnormality, prob rate related Electronically Signed On 02-10-2025 19:21:15 PDT by Ricky Gonzales Please click the below link to view image of tracing.
--- NOTE | 2025-02-10 09:03 | ECG ---
[facility] Test Date: 2025-02-10 Test Time: 09:01:39 Pat Name: KIM SOLIS Department: er Room: [address] [place] [address] Gender: F Furnace Brazer: jung : 1970 Requested By: MARIA R NICHOLSON Order Number: [id number] Reading MD: Ricky Gonzales Measurements Intervals [place] Rate: 93 P: 36 MT: 152 QRS: 30 QRSD: 81 T: 38 QT: 363 QTc: 452 Interpretive Statements Sinus rhythm Probable left atrial enlargement Baseline wander in lead(s) I,III,aVR,aVL,aVF,V1,V6 Electronically Signed On 02-10-2025 19:22:07 PDT by Ricky Gonzales Please click the below link to view image of tracing.
--- NOTE | 2025-02-10 09:38 | DVHINCON2 ---
Date Seen: Feb 10, 2025 Referring Physician Eileen Reason for Consultation New onset atrial fibrillation with episode of RVR History of Present Illness 54-year-old female with PMH for hypotension, thyroid disease, amyloidosis, and neuropathy presented to the hospital with complaint of palpitations. Patient states she has been having on and off palpitations for a while has been following up at [place] with multiple Holter monitors with no arrhythmias noted. Though upon presentation in the ER patient noted to be in AFib RVR with heart rate in the 160s. Patient denied any chest pain shortness of breath though did endorse diaphoresis and lightheadedness with her palpitations. Upon evaluation in the ER initially troponins trending negative at 7, 11, then slightly trending up to 59, and 160. K 3.4, mg 1.9. CXR showed mild pulmonary vascular congestion. BNP 66. Patient was treated with Cardizem for which heart rate converted back to sinus rhythm. Patient also placed on Levophed drip due to hypotension. Initial EKG reviewed and shows atrial fibrillation with rapid ventricular response at 161 beats per minute inferior anterior ST and T-wave abnormality. Subsequent EKG done showed sinus rhythm at 80 beats per minute with early repolarization. Past Medical History As stated above Past Surgical History As stated above Family History: Patient reports no known family medical history. Family History Denies pertinent family cardiac history Social History Denies alcohol, tobacco, or illicit drug use Allergies: Coded Allergies: No Known Drug Allergy (Verified Allergy, Unknown, 09/18/18) Home Meds Active Scripts Ferrous Sulfate (FERROUS SULFATE) 325 Mg Tb, 1 TAB PO BID, #60 TAB 1 Refill Prov:DOT RUVALCABA MD 09/22/18 Current Medications Current Medications Medications (Trade) Dose Ordered Sig/Sid Route PRN Reason Start Time Stop Time Status Last Admin Norepinephrine Bitartrate 250 ml @ 3.75 mls/hr Q24H IV 02/10/25 00:45 02/10/25 00:54 Aspirin 81 mg DAILY PO 02/11/25 10:00 Atorvastatin Calcium (Lipitor) 20 mg HS PO 02/10/25 22:00 Levothyroxine Sodium (Synthroid Tablet) 50 mcg QAM@0600 PO 02/10/25 06:00 02/10/25 05:56 Amiodarone HCl (Cordarone Tablet) 200 mg Q12HR PO 02/10/25 10:00 Sodium Chloride (Saline Lock Ns) 10 ml Q8HR IV 02/10/25 06:00 02/10/25 05:53 Acetaminophen/ Hydrocodone Bitart ([place] 5/325MG Tab) 1 tab Q4HP PRN PO MODERATE PAIN (4-6 PAIN SCALE) 02/10/25 02:15 Ondansetron HCl (Zofran) 4 mg Q4HP PRN IV NAUSEA / VOMITING 02/10/25 02:15 Docusate Sodium (Colace Capsule) 100 mg BIDPRN PRN PO FOR CONSTIPATION 02/10/25 02:15 Acetaminophen (Tylenol Tablet) 650 mg Q6HP PRN PO PAIN SCALE 1-3 OR TEMP>100.4 02/10/25 02:15 Nitroglycerin (Ntrostat Sublingual) 0.4 mg Q5MINP PRN SL FOR CHEST PAIN 02/10/25 02:15 Morphine Sulfate 2 mg Q30M PRN IV FOR CHEST PAIN 02/10/25 02:15 Review of Systems Constitutional: No: Fever, Chills, Sweats, Weakness, Malaise, Other Eyes: No: Pain, Vision change, Conjunctivae inflammation, Eyelid inflammation, Other, Redness ENT: No: Ear pain, Ear discharge, Nose pain, Nose discharge, Nose congestion, Mouth pain, Mouth swelling, Throat pain, Throat swelling, Other Respiratory: No: Cough, Dry, , SOB with exertion, Wheezing, Hemoptysis, Pleuritic Pain, Sputum, Wheezing, Other positive: Shortness of breath Cardiovascular: ; No: Chest Pain , Orthopnea, Paroxysmal Noc. Dyspnea, Edema, Lt Headedness, Other positive: Palpitations Gastrointestinal: No: Nausea, Vomiting, Abdominal Pain, Diarrhea, Constipation, Melena, Hematochezia, Other Genitourinary: No Dysuria, No Frequency, No Incontinence, No Hematuria, No Retention, No Other Musculoskeletal: neck pain; No: other, shoulder pain, arm pain, back pain, hand pain, leg pain, foot pain Skin: No: Rash, Lesions, Jaundice, Bruising, Other Neurological: Other (Dizziness, headache.); No: Weakness, Numbness, Incoordination, Change in speech, Confusion, Seizures Vital Signs Vital Signs Date Time Temp Pulse Resp B/P (MAP) Pulse Ox O2 Delivery O2 Flow Rate FiO2 02/10/25 08:30 106/65 02/10/25 07:54 Nasal Cannula* 2 28 02/10/25 07:45 84 11 95 02/10/25 07:15 98.1 98.1 Physical Exam General appearance: Patient is well-developed, well-nourished, in no acute distress. HEENT: Exam shows: Normocephalic, atraumatic, PERRLA, EOMI Neck: Supple, no bruits Chest: Equal chest excursion bilaterally. Breath sounds crackles Heart: Rhythm: Irregular, Regular rate; no murmur or gallop Abdomen: Exam shows: Soft, nontender, nondistended Musculoskeletal: No clubbing, no cyanosis, no lower extremity edema Dermatology: Skin warm, moist. Neurological: Exam shows: Alert and oriented x4, normal speech Available prior records, labs, EKG, rhythm strips reviewed and interpreted Labs/Diagnostic Data Labs Test 02/10/25 04:30 02/09/25 23:15 Range/Units White Blood Count 5.6 4.4-10.8 10^3/uL Red Blood Count 3.89 L 4.0-5.20 10^6/uL Hemoglobin 12.5 12.2-16.2 g/dL Hematocrit 37.3 36.0-46.0 % Mean Corpuscular Volume 96.0 80.0-100.0 fL Mean Corpuscular Hemoglobin 32.1 H 28.0-32.0 pg Mean Corpuscular Hemoglobin Concent 33.4 32.0-36.0 g/dL Red Cell Distribution Width 18.4 H 11.8-14.3 % Platelet Count 214 140-450 10^3/uL Mean Platelet Volume 9.0 6.9-10.8 fL Neutrophils (%) (Auto) 30.3 L 37.0-80.0 % Lymphocytes (%) (Auto) 42.7 10.0-50.0 % Monocytes (%) (Auto) 17.0 H 0.0-12.0 % Eosinophils (%) (Auto) 8.7 H 0.0-7.0 % Basophils (%) (Auto) 1.3 0.0-2.0 % Neutrophils # (Auto) 1.7 1.6-8.6 10 ^3/uL Lymphocytes # (Auto) 2.4 0.4-5.4 10 ^3/uL Monocytes # (Auto) 1.0 0-1.3 10 ^3/uL Eosinophils # (Auto) 0.5 0-0.8 10 ^3/uL Basophils # (Auto) 0.1 0-0.2 10 ^3/uL Nucleated Red Blood Cells 0.1 % Sodium Level 143 136-145 mmol/L Potassium Level 3.4 L 3.5-5.1 mmol/L Chloride Level 110 H 98-107 mmol/L Carbon Dioxide Level 24 20-31 mmol/L Anion Gap 9 5-15 Blood Urea Nitrogen 16 9-23 mg/dL Creatinine 0.52 L 0.550-1.02 mg/dL Glomerular Filtration Rate Calc 110 >90 mL/min BUN/Creatinine Ratio 30.8 H 10.0-20.0 Serum Glucose 124 H 74-106 mg/dL Calcium Level 8.2 L 8.7-10.4 mg/dL Magnesium Level 1.9 1.6-2.6 mg/dL Total Bilirubin 0.3 0.2-1.0 mg/dL Aspartate Amino Transferase (AST) 20 13-40 U/L Alanine Aminotransferase (ALT) 42 H 7-40 U/L Alkaline Phosphatase 97 46-116 U/L Troponin I High Sensitivity 160 *H </=34 ng/L Total Protein 5.2 L 5.7-8.2 g/dL Albumin 3.4 3.2-4.8 g/dL B-Type Natriuretic Peptide 66.46 0-100 pg/mL Thyroid Stimulating Hormone (TSH) 3.02 0.55-4.78 uIU/mL Assessment * Hypotension - on vasopressor support. * New onset atrial fibrillation with episode of RVR - currently sinus rhythm. Continue amiodarone 200 mg p.o. twice daily. No AV cam shanthi in setting of hypotension. Full-dose Lovenox 1 mg/kg q.12 hours for stroke prophylaxis. Patient was transition to DOAC upon discharge * Thyroid disease -TSH normal. Per primary team. * NSTEMI likely type 2 - continue trending. Continue aspirin and statin. Follow up echo. * Amyloidosis -was following up outpatient and was receiving chemo.continue management per primary team. * Hypokalemia - monitoring replace electrolytes. * Acute hypoxic respiratory failure, pulmonary congestion - does not seem significantly overloaded, no Lasix in setting of hypotension. follow up echo. Case Discussed with Dr Mcdaniel. Currently sinus rhythm, continue amiodarone. On full-dose Lovenox for stroke prophylaxis. Follow up echo. Critical care, time spent: 40 minutes This medical document was created using an electronic medical record system with voice recognition software and computerized dictation system. Although this document has been carefully reviewed, there might still be some phonetic and typographical errors. Occasional wrong-word or ``sound-alike substitutions may have occurred due to the inherent limitations of voice recognition software. These areas are purely typographical due to imperfections of the software programs and do not reflect any compromise in the patient's medical care. Please read the chart carefully and recognize, using context, where these substitutions have occurred. Thank you for allowing me to participate in the management of this patient. The treatment plan was discussed with and agreed upon by patient/family including requesting consultants and ordering of imaging/procedures. Plan discussed with: Patient NYHA Physical activity limitations: Class2(Slight)fatigue,sob Date of Service: Feb 10, 2025 Billing Provider: JUNITO CONLEY Cardiology Common Codes: [id number] INP/OBS CARE (High), [id number] CARE 30-74 MIN JUNITO CONLEY Feb 10, 2025 09:38
[2025-02-10] MEDS: AMIODARONE HCL 200 MG TAB PO SCH (09:52)
[2025-02-10 19:30] VITALS: PULSE 85; RESP 17; O2SAT 93
--- NOTE | 2025-02-10 20:12 | DVHINCON2 ---
Date Seen: Feb 10, 2025 Referring Physician Eileen Reason for Consultation New onset atrial fibrillation with episode of RVR History of Present Illness This is a 54-year-old female with PMH of hypotension, thyroid disease, amyloidosis, and neuropathy presented to the ED with complaint of palpitations. Patient states she has been having on and off palpitations for a while has been following up at [place] with multiple Holter monitors with no arrhythmias noted. Though upon presentation in the ED patient noted to be in AFib RVR with heart rate in the 160s. Patient denied any chest pain shortness of breath though did endorse diaphoresis and lightheadedness with her palpitations. Upon evaluation in the ED initially troponins trending negative at 7, 11, then slightly trending up to 59, and 160. K 3.4, mg 1.9. Chest x-ray shows mild pulmonary vascular congestion. BNP 66. Patient was treated with Cardizem for which heart rate converted back to sinus rhythm. Patient also placed on Levophed drip due to hypotension. Initial EKG reviewed and shows atrial f ibrillation with rapid ventricular response at 161 beats per minute inferior anterior ST and T-wave abnormality. Subsequent EKG done showed sinus rhythm at 80 beats per minute with early repolarization. Past Medical History As stated above Past Surgical History As stated above Family History: Patient reports no known family medical history. Allergies: Coded Allergies: No Known Drug Allergy (Verified Allergy, Unknown, 09/18/18) Home Meds Active Scripts Ferrous Sulfate (FERROUS SULFATE) 325 Mg Tb, 1 TAB PO BID, #60 TAB 1 Refill Prov:DOT RUVALCABA MD 09/22/18 Current Medications Current Medications Medications (Trade) Dose Ordered Sig/Sid Route PRN Reason Start Time Stop Time Status Last Admin Norepinephrine Bitartrate 250 ml @ 3.75 mls/hr Q24H IV 02/10/25 00:45 02/10/25 17:14 DC 02/10/25 00:54 Aspirin 81 mg DAILY PO 02/11/25 10:00 Atorvastatin Calcium (Lipitor) 20 mg HS PO 02/10/25 22:00 Levothyroxine Sodium (Synthroid Tablet) 50 mcg QAM@0600 PO 02/10/25 06:00 02/10/25 05:56 Amiodarone HCl (Cordarone Tablet) 200 mg Q12HR PO 02/10/25 10:00 02/10/25 09:52 Sodium Chloride (Saline Lock Ns) 10 ml Q8HR IV 02/10/25 06:00 02/10/25 14:28 Acetaminophen/ Hydrocodone Bitart ([place] 5/325MG Tab) 1 tab Q4HP PRN PO MODERATE PAIN (4-6 PAIN SCALE) 02/10/25 02:15 Ondansetron HCl (Zofran) 4 mg Q4HP PRN IV NAUSEA / VOMITING 02/10/25 02:15 Docusate Sodium (Colace Capsule) 100 mg BIDPRN PRN PO FOR CONSTIPATION 02/10/25 02:15 Acetaminophen (Tylenol Tablet) 650 mg Q6HP PRN PO PAIN SCALE 1-3 OR TEMP>100.4 02/10/25 02:15 Nitroglycerin (Ntrostat Sublingual) 0.4 mg Q5MINP PRN SL FOR CHEST PAIN 02/10/25 02:15 Morphine Sulfate 2 mg Q30M PRN IV FOR CHEST PAIN 02/10/25 02:15 Enoxaparin Sodium (Lovenox) 70 mg Q12HR SC 02/10/25 22:00 UNV Review of Systems Constitutional: No: Fever, Chills, Sweats, Weakness, Malaise, Other Eyes: No: Pain, Vision change, Conjunctivae inflammation, Eyelid inflammation, Other, Redness ENT: No: Ear pain, Ear discharge, Nose pain, Nose discharge, Nose congestion, Mouth pain, Mouth swelling, Throat pain, Throat swelling, Other Respiratory: No: Cough, Dry, , SOB with exertion, Wheezing, Hemoptysis, Pleuritic Pain, Sputum, Wheezing, Other positive: Shortness of breath Cardiovascular: ; No: Chest Pain , Orthopnea, Paroxysmal Noc. Dyspnea, Edema, Lt Headedness, Other positive: Palpitations Gastrointestinal: No: Nausea, Vomiting, Abdominal Pain, Diarrhea, Constipation, Melena, Hematochezia, Other Genitourinary: No Dysuria, No Frequency, No Incontinence, No Hematuria, No Retention, No Other Musculoskeletal: neck pain; No: other, shoulder pain, arm pain, back pain, hand pain, leg pain, foot pain Skin: No: Rash, Lesions, Jaundice, Bruising, Other Neurological: Other (Dizziness, headache.); No: Weakness, Numbness, Incoordination, Change in speech, Confusion, Seizures Vital Signs Vital Signs Date Time Temp Pulse Resp B/P (MAP) Pulse Ox O2 Delivery O2 Flow Rate FiO2 02/10/25 18:46 98.0 88 20 100/63 (75) 95 98.0 02/10/25 07:54 Nasal Cannula* 2 28 Physical Exam GENERAL: Awake, alert, oriented. LUNGS: Clear. CARDIOVASCULAR: Irregular rate/rhythm. ABDOMEN: Soft. Labs/Diagnostic Data Labs Test 02/10/25 11:44 02/10/25 04:30 02/09/25 23:15 Range/Units Troponin I High Sensitivity 166 *H </=34 ng/L White Blood Count 5.6 4.4-10.8 10^3/uL Red Blood Count 3.89 L 4.0-5.20 10^6/uL Hemoglobin 12.5 12.2-16.2 g/dL Hematocrit 37.3 36.0-46.0 % Mean Corpuscular Volume 96.0 80.0-100.0 fL Mean Corpuscular Hemoglobin 32.1 H 28.0-32.0 pg Mean Corpuscular Hemoglobin Concent 33.4 32.0-36.0 g/dL Red Cell Distribution Width 18.4 H 11.8-14.3 % Platelet Count 214 140-450 10^3/uL Mean Platelet Volume 9.0 6.9-10.8 fL Neutrophils (%) (Auto) 30.3 L 37.0-80.0 % Lymphocytes (%) (Auto) 42.7 10.0-50.0 % Monocytes (%) (Auto) 17.0 H 0.0-12.0 % Eosinophils (%) (Auto) 8.7 H 0.0-7.0 % Basophils (%) (Auto) 1.3 0.0-2.0 % Neutrophils # (Auto) 1.7 1.6-8.6 10 ^3/uL Lymphocytes # (Auto) 2.4 0.4-5.4 10 ^3/uL Monocytes # (Auto) 1.0 0-1.3 10 ^3/uL Eosinophils # (Auto) 0.5 0-0.8 10 ^3/uL Basophils # (Auto) 0.1 0-0.2 10 ^3/uL Nucleated Red Blood Cells 0.1 % Sodium Level 143 136-145 mmol/L Potassium Level 3.4 L 3.5-5.1 mmol/L Chloride Level 110 H 98-107 mmol/L Carbon Dioxide Level 24 20-31 mmol/L Anion Gap 9 5-15 Blood Urea Nitrogen 16 9-23 mg/dL Creatinine 0.52 L 0.550-1.02 mg/dL Glomerular Filtration Rate Calc 110 >90 mL/min BUN/Creatinine Ratio 30.8 H 10.0-20.0 Serum Glucose 124 H 74-106 mg/dL Calcium Level 8.2 L 8.7-10.4 mg/dL Magnesium Level 1.9 1.6-2.6 mg/dL Total Bilirubin 0.3 0.2-1.0 mg/dL Aspartate Amino Transferase (AST) 20 13-40 U/L Alanine Aminotransferase (ALT) 42 H 7-40 U/L Alkaline Phosphatase 97 46-116 U/L Total Protein 5.2 L 5.7-8.2 g/dL Albumin 3.4 3.2-4.8 g/dL B-Type Natriuretic Peptide 66.46 0-100 pg/mL Thyroid Stimulating Hormone (TSH) 3.02 0.55-4.78 uIU/mL Assessment Hypotension. New onset atrial fibrillation with episode of RVR. Thyroid disease. NSTEMI likely type 2. Amyloidosis. Hypokalemia. Acute hypoxic respiratory failure, pulmonary congestion. Plan/Recommendation I agree with your ongoing assessment and care of plan. Patient has been seen by Rusty Warren NP on my behalf, him and I discussed the plan with the patient. Vasopressor for hemodynamic support. Continue amiodarone 200 mg p.o. twice daily. No AV cam shanthi in setting of hypotension. Full-dose Lovenox 1 mg/kg q.12 hours for stroke. Continue aspirin and statin. Echocardiogram. No Lasix in setting of hypotension. Additional plan as per the hospital course. Plan discussed with: Patient NYHA Physical activity limitations: Class2(Slight)fatigue,sob Date of Service: Feb 10, 2025 Billing Provider: MICHELLE CARLSON MD Cardiology Common Codes: [id number] INP/OBS CARE (High), [id number] CARE 30-74 MIN MICHELLE CARLSON MD Feb 10, 2025 19:54
--- NOTE | 2025-02-10 20:39 | DVHSR ---
APPROVED REPORT EXAM: Two-dimensional and M-mode echocardiogram with Doppler and color Doppler. Blood Pressure: 103/62 mmHg INDICATION New onset A-Fib RISK FACTORS Height: 5' 5", Weight: 150 DIMENSIONS LVDd4.4 (3.8-5.7cm)LA (2D)3.6 (1.9-4.0cm)Aortic Root2.8 (2.0-3.7cm) LVDs3.0 (2.5-4.0cm)LA (MM) (1.9-4.0cm)Aortic Cusp Exc2.0 (1.5-2.0cm) EF (%) 60.0 (55-70%)Rt. Atrium3.6 (1.9-4.0cm)Asc. Aorta cm IVSd0.8 (0.7-1.1cm)RV (D) (1.8-2.4cm) PWd0.9 (0.7-1.1cm) Mitral Valve MitralMitral Stenosis E wave0.90m/sMV Mean GR.mmHg A wave0.70m/sMV Peak GR.mmHg E/A ratio1.32D MVAcm2 Aortic Valve Aortic ValveAortic Stenosis V11.00m/Perla Mean GR.4mmHg V21.50m/Perla Peak GR.9mmHg LVOT Diameter2.0 (1.8-2.4cm)Doppler AVA2.09cm2 Pulmonic Valve V20.70m/s Tricuspid Valve TR Velocity2.50m/s [id number] Conclusion LV EF IS 65% NORMAL RV FUNCTION NORMAL VALVES NO EFFUSION NORMAL RV FUNCTION NORMAL RVSP IS 30 MM OF HG
[2025-02-10] MEDS: ATORVASTATIN 20 MG TAB PO SCH (21:53)
[2025-02-10] MEDS: ENOXAPARIN SOD 100 MG/1 ML SYRINGE SC SCH (21:54)
[2025-02-10 22:08] VITALS: PULSE 89; RESP 17; O2SAT 96
[2025-02-10] MEDS ORDERED: LOPE-62 PO (22:15)
[2025-02-10] MEDS ORDERED: ACET1CAP14 PO (22:34)
[2025-02-10] MEDS ORDERED: MIDO10TA3 PO (22:35)
[2025-02-10] MEDS ORDERED: MULT50TA PO (22:36)
[2025-02-10] MEDS ORDERED: ASPI-325 PO (22:36)
[2025-02-10] MEDS ORDERED: ASCO1TAB27 PO (22:36)
[2025-02-10] MEDS ORDERED: MIRT-91 PO (22:38)
[2025-02-10] MEDS ORDERED: ESOM40CA83 PO (22:39)
[2025-02-10] MEDS ORDERED: NITR-87 PO (22:39)
[2025-02-10] MEDS ORDERED: CLOT1CRE7 TOP (22:39)
[2025-02-10] MEDS ORDERED: METO10TA4 PO (22:41)
[2025-02-10] MEDS ORDERED: CIPR500T4 PO (22:41)
[2025-02-11] VITALS (8 sets, daily range): BP systolic 105–121; BP diastolic 52–77; PULSE 87–92; RESP 16–17; TEMP 97.9–99.4; O2SAT 93–98
[2025-02-11 07:21] LABS: Basophils # (auto) 0 10 ^3/uL (0-0.2); Basophils % (auto) 0.6 % (0.0-2.0); Eosinophils # (auto) 0.3 10 ^3/uL (0-0.8); Eosinophils % (auto) 7.8 % (0.0-7.0); Hematocrit 34.7 % (36.0-46.0); Hemoglobin 11.8 g/dL (12.2-16.2); Lymphocytes # (auto) 2.3 10 ^3/uL (0.4-5.4); Lymphocytes % (auto) 53.4 % (10.0-50.0); Mean Corpuscular Hemoglobin 32.8 pg (28.0-32.0); Mean Corpuscular Hgb Conc. 34.1 g/dL (32.0-36.0); Monocytes # (auto) 0.7 10 ^3/uL (0-1.3); Monocytes % (auto) 16.9 % (0.0-12.0); Neutrophils # (auto) 0.9 10 ^3/uL (1.6-8.6); Neutrophils % (auto) 21.3 % (37.0-80.0); Platelet Count (auto) 174 10^3/uL (140-450); Red Blood Cells 3.61 10^6/uL (4.0-5.20); Red Cell Distribution Width 18.2 % (11.8-14.3); White Blood Cell 4.2 10^3/uL (4.4-10.8)
[2025-02-11 07:28] LABS: Alanine Aminotransferase 33 U/L (7-40); Albumin 3.4 g/dL (3.2-4.8); Alkaline Phosphatase 80 U/L (46-116); Anion Gap 7 (5-15); Aspartate Aminotransferase 13 U/L (13-40); BUN/Creatinine Ratio 22.9 (10.0-20.0); Blood Urea Nitrogen 11 mg/dL (9-23); Calcium 9.1 mg/dL (8.7-10.4); Carbon Dioxide 24 mmol/L (20-31); Glucose 85 mg/dL (74-106); Sodium 142 mmol/L (136-145)
[2025-02-11 07:29] LABS: Bilirubin, Total 0.5 mg/dL (0.2-1.0); Chloride 111 mmol/L (98-107); Potassium 3.4 mmol/L (3.5-5.1); Total Protein 5.2 g/dL (5.7-8.2)
[2025-02-11 10:15] LABS: INR 0.94 (0.9-1.15)
[2025-02-11] MEDS: ASPirin 81 mg TAB PO SCH (10:34)
[2025-02-11] MEDS: POTASSIUM EFFERVESENT TAB 25 MEQ PO ONE (10:35)
[2025-02-11 12:27] LABS: Rapid Influenza A Negative (Negative); Rapid Influenza B Negative (Negative)
[2025-02-11 12:28] LABS: COVID19 ANTIGEN SOFIA FIA NEGATIVE (NEGATIVE)
[2025-02-11] MEDS: DOCUSATE SOD 100 MG CAP PO ONE (13:32)
--- NOTE | 2025-02-11 14:36 | ECG ---
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
--- NOTE | 2025-02-11 14:40 | ECG ---
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
--- NOTE | 2025-02-11 16:11 | DVHPNRES ---
Progress Note Date Seen: Feb 11, 2025 Resident Creating Document: NIMCO HARRISON RESIDENT Has the PT tested + for MRSA If YES, has PT been informed?: No Medical Necessity Reason Pt with a Central, PICC or Fol: No Subjective Review of Systems This is a 54-year-old female with past medical history of hypotension, thyroid disease, amyloidosis, and peripheral neuropathy, urinary incontinence, and chronic constipation who presented to the ED with complaint of palpitations. Patient states she has been having on and off palpitations for a while has been following up at [place] with multiple Holter monitors with no arrhythmias noted. On admission patient had Afib RVR with heart rate in the 160s. Patient denied any chest pain shortness of breath though did endorse diaphoresis and lightheadedness with her palpitations. She is currently on amiodarone for rhythm control and metoprolol for rate control. Echo was unremarkable troponin went up until 160 likely nstemi type 2. pending urinalysis ROS: Constitutional: No: Fever, Chills, Sweats, Weakness, Malaise, Other Eyes: No: Pain, Vision change, Conjunctivae inflammation, Eyelid inflammation, Other, Redness ENT: No: Ear pain, Ear discharge, Nose pain, Nose discharge, Nose congestion, Mouth pain, Mouth swelling, Throat pain, Throat swelling, Other Respiratory: No: Cough, Dry, , SOB with exertion, Wheezing, Hemoptysis, Pleuritic Pain, Sputum, Wheezing, Other positive: Shortness of breath Cardiovascular: ; No: Chest Pain , Orthopnea, Paroxysmal Noc. Dyspnea, Edema, Lt Headedness, Other positive: Palpitations Gastrointestinal: No: Nausea, Vomiting, Abdominal Pain, Diarrhea, Constipation, Melena, Hematochezia, Other Genitourinary: No Dysuria, No Frequency, No Incontinence, No Hematuria, No Retention, No Other Musculoskeletal: neck pain; No: other, shoulder pain, arm pain, back pain, hand pain, leg pain, foot pain Skin: No: Rash, Lesions, Jaundice, Bruising, Other Neurological: Other (Dizziness, headache.); No: Weakness, Numbness, Incoordination, Change in speech, Confusion, Seizures Patient reports: No new complaints Changes from previous H/P or p: No Changes Objective vital signs Vital Sign Date Time Temp Pulse Resp B/P (MAP) Pulse Ox O2 Delivery O2 Flow Rate FiO2 02/11/25 13:00 99.4 88 17 121/77 (92) 98 99.4 02/11/25 08:00 Room Air* 0 21 Total Intake and Output 02/10/25 02/10/25 02/11/25 15:00 23:00 07:00 Intake Total 3.75 ml 0 ml Balance 3.75 ml 0 ml medications Current Medications Medications Dose Ordered Sig/Sid Route Start Time Stop Time Status Last Admin Dose Admin Aspirin 81 mg DAILY PO 02/11/25 10:00 02/11/25 10:34 81 MG Atorvastatin Calcium 20 mg HS PO 02/10/25 22:00 02/10/25 21:53 20 MG Levothyroxine Sodium 50 mcg QAM@0600 PO 02/10/25 06:00 02/11/25 05:52 50 MCG Amiodarone HCl 200 mg Q12HR PO 02/10/25 10:00 02/11/25 10:34 200 MG Sodium Chloride 10 ml Q8HR IV 02/10/25 06:00 02/11/25 05:53 10 ML Acetaminophen/ Hydrocodone Bitart 1 tab Q4HP PRN PO 02/10/25 02:15 Ondansetron HCl 4 mg Q4HP PRN IV 02/10/25 02:15 Acetaminophen 650 mg Q6HP PRN PO 02/10/25 02:15 Nitroglycerin 0.4 mg Q5MINP PRN SL 02/10/25 02:15 Morphine Sulfate 2 mg Q30M PRN IV 02/10/25 02:15 Enoxaparin Sodium 70 mg Q12HR SC 02/10/25 22:00 02/11/25 10:35 70 MG Docusate Sodium 100 mg BID PO 02/11/25 22:00 Examination Physical Exam General appearance: Patient is well-developed, well-nourished, in no acute distress. Neck: Supple, no bruits Chest: Equal chest excursion bilaterally. Breath sounds crackles Heart: Rhythm: regular and Regular rate; no murmur or gallop Abdomen: Exam shows: Soft, nontender, nondistended Musculoskeletal: No clubbing, no cyanosis, no lower extremity edema Dermatology: Skin with bruises due to the lack of sensitivity due to neuropathy, Neurological: Exam shows: Alert and oriented x4, normal speech laboratory and microbiology Laboratory Tests 02/11/25 05:42 Test 02/11/25 05:42 Range/Units Serum Glucose 85 74-106 mg/dL Problem List/Assessment/Plan Problem List/Assessment/Plan acute respiratory distress due to mild pulmonary vascular congestion likely due to Paroxysmal atrial fibrillation with RVR new onset paroxysmal afib - echo unremarkable - urinalysis - bnp unremarkable - trops negative - therapeutic Lovenox - amiodarone 200 mg po bid Hypotension - resolved hypothyroidism - tsh normal - levothyroxine NSTEMI type 2 history of amyloidosis hypercoagulable state peripheral neuropathy - gabapentin - on chemo hypokalemia - replaced overweight - lifestyle modification counseling and dietary habits counseling diet: cardiac diet dvt ppx: lovenox case discussed with dr. faith goals of care discussed with patient for 23 minutes code status: full code Plan discussed with: Patient My Orders My Orders Orders - NIMCO HARRISON Procedure Category Date Status Time Straight Cath Patient ORDERS 02/11/25 Transmitted 11:20 Urinalysis LAB 02/11/25 Uncollected 11:20 Pt Request For Service PT 02/11/25 Logged 11:22 Docusate Sodium PHA 02/11/25 In Process Capsule (Colace 22:00 Date of Service: Feb 11, 2025 Billing Provider: MELINA FAITH MD Common Visit Codes: [id number] INP/OBS CARE(HIGH) NIMCO HARRISON Feb 11, 2025 16:11 MELINA FAITH MD Feb 12, 2025 14:46
[2025-02-11] MEDS: GABAPENTIN 300 MG CAP PO ONE (18:23)
[2025-02-11 18:27] LABS: Urine Bacteria None Seen /hpf (None Seen)
[2025-02-11 18:48] LABS: Urine Blood Negative /uL (Negative); Urine Clarity Turbid (Clear); Urine Color Colorless (Yellow); Urine Protein, UAD 1+ (Negative); Urine Specific Gravity 1.011 (1.001-1.035); Urine Squamous Epithelial Cell FEW /hpf (<5); Urine Urobilinogen Normal (Negative); Urine WBC 11 /HPF (0-5)
--- NOTE | 2025-02-11 18:56 | DVHPN2 ---
Progress Note - Dictate Date Seen: Feb 11, 2025 Has the PT tested + for MRSA If YES, has PT been informed?: No Medical Necessity Reason Pt with a Central, PICC or Fol: No Subjective Patient was seen and evaluated in follow up. No overnight events. Covid is negative. Influenza A/B are negative. PT and INR are WNL. K 3.4. Echocardiogram shows an EF of 65%. Telemetry reviewed. vital signs Vital Sign Date Time Temp Pulse Resp B/P (MAP) Pulse Ox O2 Delivery O2 Flow Rate FiO2 02/11/25 17:00 98.0 91 17 112/68 (83) 93 98.0 02/11/25 08:00 Room Air* 0 21 Total Intake and Output 02/10/25 02/10/25 02/11/25 15:00 23:00 07:00 Intake Total 3.75 ml 0 ml Balance 3.75 ml 0 ml medications Current Medications Medications Dose Ordered Sig/Sid Route Start Time Stop Time Status Last Admin Dose Admin Aspirin 81 mg DAILY PO 02/11/25 10:00 02/11/25 10:34 81 MG Atorvastatin Calcium 20 mg HS PO 02/10/25 22:00 02/10/25 21:53 20 MG Levothyroxine Sodium 50 mcg QAM@0600 PO 02/10/25 06:00 02/11/25 05:52 50 MCG Amiodarone HCl 200 mg Q12HR PO 02/10/25 10:00 02/11/25 10:34 200 MG Sodium Chloride 10 ml Q8HR IV 02/10/25 06:00 02/11/25 18:24 10 ML Acetaminophen/ Hydrocodone Bitart 1 tab Q4HP PRN PO 02/10/25 02:15 Ondansetron HCl 4 mg Q4HP PRN IV 02/10/25 02:15 Acetaminophen 650 mg Q6HP PRN PO 02/10/25 02:15 Nitroglycerin 0.4 mg Q5MINP PRN SL 02/10/25 02:15 Morphine Sulfate 2 mg Q30M PRN IV 02/10/25 02:15 Enoxaparin Sodium 70 mg Q12HR SC 02/10/25 22:00 02/11/25 10:35 70 MG Docusate Sodium 100 mg BID PO 02/11/25 22:00 Gabapentin 600 mg BID PO 02/11/25 22:00 objective GENERAL: Awake, alert, oriented. LUNGS: Clear. CARDIOVASCULAR: Heart sounds are good. ABDOMEN: Soft. laboratory and microbiology Laboratory Tests 02/11/25 05:42 Test 02/11/25 05:42 Range/Units Serum Glucose 85 74-106 mg/dL Problem List Hypotension. New onset atrial fibrillation with episode of RVR. Thyroid disease. NSTEMI likely type 2. Amyloidosis. Hypokalemia. Acute hypoxic respiratory failure, pulmonary congestion. Assessment/Plan Continued all current supportive medical care. [place] for pain management. Amiodarone. Aspirin, Lipitor. DVT prophylactics. Morphine for pain management. Additional plan as per the hospital course. Plan discussed with: Patient MICHELLE CARLSON MD Feb 11, 2025 18:56
[2025-02-11] MEDS: GABAPENTIN 300 MG CAP PO SCH (21:46)
[2025-02-11] MEDS: DOCUSATE SOD 100 MG CAP PO SCH (21:47)
[2025-02-12 05:00] VITALS: BP 105/66; PULSE 83; RESP 16; TEMP 98.1; O2SAT 96
[2025-02-12 06:27] LABS: Basophils # (auto) 0.1 10 ^3/uL (0-0.2); Basophils % (auto) 1.4 % (0.0-2.0); Eosinophils # (auto) 0.3 10 ^3/uL (0-0.8); Eosinophils % (auto) 8.8 % (0.0-7.0); Hematocrit 36.7 % (36.0-46.0); Hemoglobin 12.1 g/dL (12.2-16.2); Lymphocytes # (auto) 1.9 10 ^3/uL (0.4-5.4); Lymphocytes % (auto) 47.8 % (10.0-50.0); Mean Corpuscular Hemoglobin 31.8 pg (28.0-32.0); Mean Corpuscular Hgb Conc. 33.1 g/dL (32.0-36.0); Mean Corpuscular Volume 96.2 fL (80.0-100.0); Monocytes # (auto) 0.7 10 ^3/uL (0-1.3); Monocytes % (auto) 17.3 % (0.0-12.0); Neutrophils % (auto) 24.7 % (37.0-80.0); Nucleated Red Blood Cells % 0.1 %; Platelet Count (auto) 188 10^3/uL (140-450); Red Blood Cells 3.82 10^6/uL (4.0-5.20); Red Cell Distribution Width 18.6 % (11.8-14.3); White Blood Cell 3.9 10^3/uL (4.4-10.8)
[2025-02-12 06:34] LABS: Potassium 3.7 mmol/L (3.5-5.1); Sodium 142 mmol/L (136-145)
[2025-02-12 06:35] LABS: Anion Gap 7 (5-15); Calcium 8.8 mg/dL (8.7-10.4); Carbon Dioxide 25 mmol/L (20-31)
[2025-02-12 06:40] LABS: BUN/Creatinine Ratio 23.2 (10.0-20.0); Blood Urea Nitrogen 13 mg/dL (9-23); Glucose 95 mg/dL (74-106)
[2025-02-12 06:41] LABS: Chloride 110 mmol/L (98-107)
[2025-02-12 08:00] VITALS: PULSE 79; PULSE 83; RESP 16; O2SAT 97
[2025-02-12 09:00] VITALS: BP 108/71; PULSE 83; RESP 17; TEMP 98; O2SAT 95
[2025-02-12 13:00] VITALS: BP 97/66; PULSE 81; RESP 17; TEMP 98; O2SAT 95
[2025-02-12] MEDS ORDERED: AMIO200T13 PO (13:18)
[2025-02-12] MEDS ORDERED: GABA-1250 PO (13:18)
[2025-02-12] MEDS ORDERED: ATOR20TA50 PO (13:18)
[2025-02-12] MEDS ORDERED: LEVO50TA7 PO (13:18)
[2025-02-12 15:26] VITALS: BP 97/67; PULSE 81; RESP 17; TEMP 36.7; O2SAT 95
--- NOTE | 2025-02-12 16:31 | DVHDSRES ---
Discharge Summary Date of Admission Resident Creating Document: NIMCO HARRISON RESIDENT Feb 10, 2025 at 02:01 Date of Discharge: Feb 12, 2025 Admitting Diagnosis afib with rvr Labs/Diagnostic Data: Laboratory Results Test 02/12/25 05:47 02/11/25 14:00 02/11/25 10:43 02/11/25 09:45 White Blood Count 3.9 10^3/uL (4.4-10.8) Red Blood Count 3.82 10^6/uL (4.0-5.20) Hemoglobin 12.1 g/dL (12.2-16.2) Hematocrit 36.7 % (36.0-46.0) Mean Corpuscular Volume 96.2 fL (80.0-100.0) Mean Corpuscular Hemoglobin 31.8 pg (28.0-32.0) Mean Corpuscular Hemoglobin Concent 33.1 g/dL (32.0-36.0) Red Cell Distribution Width 18.6 % (11.8-14.3) Platelet Count 188 10^3/uL (140-450) Mean Platelet Volume 8.8 fL (6.9-10.8) Neutrophils (%) (Auto) 24.7 % (37.0-80.0) Lymphocytes (%) (Auto) 47.8 % (10.0-50.0) Monocytes (%) (Auto) 17.3 % (0.0-12.0) Eosinophils (%) (Auto) 8.8 % (0.0-7.0) Basophils (%) (Auto) 1.4 % (0.0-2.0) Neutrophils # (Auto) 1.0 10 ^3/uL (1.6-8.6) Lymphocytes # (Auto) 1.9 10 ^3/uL (0.4-5.4) Monocytes # (Auto) 0.7 10 ^3/uL (0-1.3) Eosinophils # (Auto) 0.3 10 ^3/uL (0-0.8) Basophils # (Auto) 0.1 10 ^3/uL (0-0.2) Nucleated Red Blood Cells 0.1 % Sodium Level 142 mmol/L (136-145) Potassium Level 3.7 mmol/L (3.5-5.1) Chloride Level 110 mmol/L (98-107) Carbon Dioxide Level 25 mmol/L (20-31) Anion Gap 7 (5-15) Blood Urea Nitrogen 13 mg/dL (9-23) Creatinine 0.56 mg/dL (0.550-1.02) Glomerular Filtration Rate Calc 108 mL/min (>90) BUN/Creatinine Ratio 23.2 (10.0-20.0) Serum Glucose 95 mg/dL (74-106) Calcium Level 8.8 mg/dL (8.7-10.4) Urine Color Colorless (Yellow) Urine Clarity Turbid (Clear) Urine pH 7.0 (5.0-9.0) Urine Specific [place] 1.011 (1.001-1.035) Urine Protein 1+ (Negative) Urine Ketones Negative (Negative) Urine Blood Negative /uL (Negative) Urine Nitrite Negative (Negative) Urine Bilirubin Negative (Negative) Urine Urobilinogen Normal mg/dL (Negative) Urine Leukocyte Esterase 1+ /uL (Negative) Urine RBC <1 /hpf (0 - 4) Urine Microscopic WBC 11 /HPF (0-5) Urine Squamous Epithelial Cells Few /hpf (<5) Urine Bacteria None seen /hpf (None Seen) Urine Glucose Normal mg/dL (Normal) Influenza Type A Antigen Negative (Negative) Influenza Type B Antigen Negative (Negative) SARS-CoV-2 Antigen (Rapid) Negative (NEGATIVE) Prothrombin Time 10.0 sec (9.3-11.8) Prothrombin Time INR 0.94 (0.9-1.15) Test 02/11/25 05:42 02/10/25 11:44 02/10/25 04:30 02/09/25 23:15 Total Bilirubin 0.5 mg/dL (0.2-1.0) Aspartate Amino Transferase (AST) 13 U/L (13-40) Alanine Aminotransferase (ALT) 33 U/L (7-40) Alkaline Phosphatase 80 U/L (46-116) Total Protein 5.2 g/dL (5.7-8.2) Albumin 3.4 g/dL (3.2-4.8) Troponin I High Sensitivity 166 ng/L (</=34) Magnesium Level 1.9 mg/dL (1.6-2.6) Free Thyroxine (T4) Calculated 1.15 ng/dL (0.89-1.76) B-Type Natriuretic Peptide 66.46 pg/mL (0-100) Thyroid Stimulating Hormone (TSH) 3.02 uIU/mL (0.55-4.78) Other Laboratory Tests 02/12/25 05:47 Brief Hx & Hospital Course: HPI: This is a 54-year-old female with past medical history of hypotension, thyroid disease, amyloidosis, and peripheral neuropathy, urinary incontinence, and chronic constipation who presented to the ED with complaint of palpitations. Patient states she has been having on and off palpitations for a while has been following up at [place] with multiple Holter monitors with no arrhythmias noted. Hospital course: On admission patient had Afib RVR with heart rate in the 160s. Patient denied any chest pain shortness of breath though did endorse diaphoresis and lightheadedness with her palpitations. 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 disposition: discharge to home Operations or Procedures [place] [id number] Ph: [phone] DIAGNOSTIC IMAGING Diagnostic Imaging Report : [id number] Signed PATIENT: KIM SOLIS ACCT: [id number] UNIT: [id number] : 1970 LOC: OVERFLOW ROOM / BED: [address] [place] [address] AGE / SEX: 54 / F ADM STATUS: ADM IN SERVICE 50 ORDERING PHYSICIAN: MARIA R NICHOLSON MD PROCEDURE(s): CXR1 - CHEST XRAY 1 VIEW REASON: cp ORDER NUMBER(s): [id number], ACCESSION NUMBER(s): [id number] CHEST RADIOGRAPH Indication: cp Technique: Single frontal view of the chest was obtained COMPARISON: None FINDINGS: Lines and Tubes: None Lungs: Evidence of mild pulmonary vascular congestion. No pulmonary infiltrates Pleura: No effusion. No pneumothorax. Cardiomediastinal contours: Unremarkable Bones: Unremarkable IMPRESSION: Mild pulmonary vascular congestion. ATED BY: FELIPE MODOY MD DICTATED DATE/TIME: 02/09/252349 SIGNED BY: FELIPE MOODY MD SIGNED DATE/TIME: 02/09/252349 CC: Condition at Discharge: Fair Final Diagnosis/Problems List acute respiratory distress due to mild pulmonary vascular congestion likely due to Paroxysmal atrial fibrillation with RVR new onset paroxysmal afib Hypotension hypothyroidism NSTEMI type 2 history of amyloidosis hypercoagulable state peripheral neuropathy hypokalemia overweight Discharge Disposition: Home SNF Discharge Will this Physician continue t: No Discharge Instruct/Medications Diet: Cardiac 2g Na,low cholest Activity: No Restrictions, As Tolerated Follow Up/Referral: follow up with pcp within 1 to 2 weeks follow up with cardiology within 2 weeks Medications: script to pharmacy Discharge Statement: "Patient was advised to return to the ER or call 911 if any headaches, dizziness, shortness of breath, chest pain, abdominal pain, bleeding, fevers, or worsening of medical condition. Patient was counseled about treatment plan, medications, possible side effects, patientverbalized understanding. All questions were answered to the best of my ability. This discharge took greater then 30 minutes in planning, reviewing documentation, counseling the patient, and discussing with other team members." ASSESSMENT ASSESSMENT Assessment atrial fibrillation with RVR peripheral neuropathy amyloidosis Date of Service: Feb 12, 2025 Billing Provider: MELINA FAITH MD Common Visit Codes: [id number] INP/OBS CARE(HIGH) NIMCO HARRISON RESIDENT Feb 12, 2025 16:30 MELINA FAITH MD Feb 14, 2025 08:35
--- NOTE | 2025-02-12 21:38 | DVHPN2 ---
Progress Note - Dictate Date Seen: Feb 12, 2025 Has the PT tested + for MRSA If YES, has PT been informed?: No Medical Necessity Reason Pt with a Central, PICC or Fol: No Subjective Patient was seen and evaluated in follow up. Patient has no new complaints at this time. Patient denies any cardiac symptoms. Patient is cardiac stable for discharge. Telemetry reviewed. vital signs Vital Sign Date Time Temp Pulse Resp B/P (MAP) Pulse Ox O2 Delivery O2 Flow Rate FiO2 02/12/25 15:26 36.7 81 17 95 02/12/25 13:00 97/66 (76) 02/12/25 08:00 Room Air* 0 21 Total Intake and Output 02/11/25 02/11/25 02/12/25 15:00 23:00 07:00 Intake Total 690 ml 540 ml 500 ml Balance 690 ml 540 ml 500 ml medications Current Medications Medications Dose Ordered Sig/Sid Route Start Time Stop Time Status Last Admin Dose Admin Aspirin 81 mg DAILY PO 02/11/25 10:00 02/12/25 09:26 81 MG Atorvastatin Calcium 20 mg HS PO 02/10/25 22:00 02/11/25 21:47 20 MG Levothyroxine Sodium 50 mcg QAM@0600 PO 02/10/25 06:00 02/12/25 05:31 50 MCG Amiodarone HCl 200 mg Q12HR PO 02/10/25 10:00 02/12/25 09:26 200 MG Sodium Chloride 10 ml Q8HR IV 02/10/25 06:00 02/12/25 15:39 10 ML Acetaminophen/ Hydrocodone Bitart 1 tab Q4HP PRN PO 02/10/25 02:15 Ondansetron HCl 4 mg Q4HP PRN IV 02/10/25 02:15 Acetaminophen 650 mg Q6HP PRN PO 02/10/25 02:15 Nitroglycerin 0.4 mg Q5MINP PRN SL 02/10/25 02:15 Morphine Sulfate 2 mg Q30M PRN IV 02/10/25 02:15 Enoxaparin Sodium 70 mg Q12HR SC 02/10/25 22:00 02/12/25 09:27 70 MG Docusate Sodium 100 mg BID PO 02/11/25 22:00 02/12/25 09:26 100 MG Gabapentin 600 mg BID PO 02/11/25 22:00 02/12/25 09:27 600 MG objective GENERAL: Awake, alert, oriented. LUNGS: Clear. CARDIOVASCULAR: Heart sounds are good. ABDOMEN: Soft. laboratory and microbiology Laboratory Tests 02/12/25 05:47 Test 02/12/25 05:47 Range/Units Serum Glucose 95 74-106 mg/dL Problem List Hypotension. New onset atrial fibrillation with episode of RVR. Thyroid disease. NSTEMI likely type 2. Amyloidosis. Hypokalemia. Acute hypoxic respiratory failure, pulmonary congestion. Assessment/Plan Continued all current supportive medical care. [place] for pain management. Amiodarone. Aspirin, Lipitor. DVT prophylactics. Morphine for pain management. Additional plan as per the hospital course. Plan discussed with: Patient MICHELLE CARLSON MD Feb 12, 2025 21:38
== END 2025-02-12 15:20 | disposition home or self-care (01) | DRG 201 ==
LOC: EDBD 22:43 → ER 22:46 → EDUNIT# 22:46 → OVERFLOW 02-10 02:01 → TELE-WESTW 02-10 22:06
PROVIDERS: ADMIT Student in an Organized Health Care Education/Training Program; ATTEND Emergency Medicine
DX: I48.0 Paroxysmal atrial fibrillation (principal); J96.01 Acute respiratory failure with hypoxia; I21.A1 Myocardial infarction type 2; D68.59 Other primary thrombophilia; E85.9 Amyloidosis, unspecified; I95.9 Hypotension, unspecified; E87.6 Hypokalemia; E07.9 Disorder of thyroid, unspecified; G62.9 Polyneuropathy, unspecified; E03.9 Hypothyroidism, unspecified; E66.3 Overweight; R32 Unspecified urinary incontinence; K59.09 Other constipation; Z79.899 Other long term (current) drug therapy; Z68.27 Body mass index [BMI] 27.0-27.9, adult; Z79.01 Long term (current) use of anticoagulants
CPT/HCPCS: 36415; 71045; 80048; 80053; 81001; 83735; 83880; 84439; 84443; 84484; 85025; 85610; 87426; 87804; 93005; 93306; 96361; 96374; 97110; 97116; 97163; 97530; 99291; G0378